=== PATIENT | male | born 1985 | race Caucasian/White ===

== ENCOUNTER 2020-08-18 04:49 | Emergency (ER) | payer OTHER, SELFPAY ==
--- NOTE | ~2020-08-18 | XR_ITS ---
XR abdomen/kub 1V 08/18/2020 06:12 Indication: Right flank pain Procedure: KUB Comparison: CT dated 08/18/2016 Findings: Punctate right UVJ stone noted in the pelvis. Bowel gas pattern nonobstructive. Moderate co lonic fecal loading. No acute osseous abnormality. Impression: 1: Punctate right UVJ stone. Reviewed, dictated and finalized at location B. Impression: 1: Punctate right UVJ stone.
--- NOTE | ~2020-08-18 | CT_ITS ---
EXAMINATION: CT abdomen pelvis wo con DATE: 08/18/2020 05:30 INDICATION: Right flank pain TECHNIQUE: Computed tomography (CT) of the abdomen and pelvis was performed without intravenous contr ast. The dose-length product was 1428.88 mGy-cm. Automated exposure control and iterative reconstruct ion technique were employed. COMPARISON: None. FINDINGS: Lung bases are unremarkable. No significant pleural or pericardial effusion. The liver, spleen, pancreas, adrenal glands and kidneys are unremarkable. There is a 2 mm right UVJ s tone with mild hydronephrosis. Nonobstructive bowel gas pattern. Colonic diverticulosis without evide nce for diverticulitis. No lymphadenopathy. Gallbladder is contracted. No free air or free fluid. No acute osseous abnormality. IMPRESSION: 1. 2 mm right UVJ stone with mild hydronephrosis. Reviewed, dictated and finalized at location B.
[2020-08-18 04:52] VITALS: BP 127/87; PULSE 86; RESP 18; TEMP 35.9; O2SAT 100
--- NOTE | 2020-08-18 04:52 | ED.MALEGU ---
HPI - Male Genitourinary General Chief complaint: Urogenital-Male Stated complaint: right side pain Time Seen by Provider: 08/18/20 04:51 Source: patient Mode of arrival: ambulatory Limitations: no limitations History of Present Illness HPI Narrative: Patient is a 35-year-old male who presents for evaluation of right flank pain. Patient states that pain awakened him from sleep approximately 2 hours ago, described as sharp, colicky in nature with radiation into his right lower flank. Patient denies any testicular pain. He reports some hesitancy with urination. He denies any dysuria or hematuria. He has no known history of kidney stones. He denies fever, chills, nausea or vomiting. Patient denies any left-sided abdominal pain or chest pain. No cough or shortness of breath. Related Data Allergies Allergy/AdvReac Type Severity Reaction Status Date / Time No Known Allergies Allergy Verified 08/18/20 04:57 Review of Systems Review of Systems: Narrative: CONSTITUTIONAL: Denies fever, chills, or sweats. CARDIOVASCULAR: Denies chest pain, palpitations, or edema. RESPIRATORY: Denies cough or dyspnea. GASTROINTESTINAL: Reports right flank pain with radiation into the right abdomen GENITOURINARY: Denies dysuria or hematuria. SKIN: Denies rash or itching. MUSCULOSKELETAL: Denies back pain, joint pain, or myalgia. NEUROLOGIC: Denies headache, numbness, or weakness. [facility] Past Medical History Medical History (Updated 08/18/20 @ 06:05 by Erika Castillo MD) No pertinent past medical history Social History Social History (Updated 08/18/20 @ 05:19 by Erika Castillo MD) Smoking status: Never smoker Substance use: never Gender identity (if verbalized by the patient): Male Exam Narrative: Exam Narrative: GENERAL: Awake, alert, conversant HEAD: Normocephalic, atraumatic. EYES: PERRLA and EOMI. ENT: Nares clear, no rhinorrhea or epistaxis. Mucous membranes moist. NECK: Supple. CHEST: No respiratory distress, breathing even and non labored HEART: Regular rate, sinus rhythm ABDOMEN:Non distended, non tender EXTREMITIES: Normal range of motion. No edema. SKIN: Warm, dry, no rash. NEURO:No focal deficits. Alert and oriented x3. Ambulatory with a narrow based, steady gait. Course Vital Signs Vital signs: Vital Signs Temperature 35.9 C L 08/18/20 04:52 Pulse Rate 86 08/18/20 04:52 Respiratory Rate 18 08/18/20 04:52 Blood Pressure 127/87 08/18/20 04:52 Pulse Oximetry 100 08/18/20 04:52 Temperature 35.9 C L 08/18/20 04:52 Pulse Rate 86 08/18/20 04:52 Respiratory Rate 18 08/18/20 04:52 Blood Pressure 127/87 08/18/20 04:52 Pulse Oximetry 100 08/18/20 04:52 MDM - Male Genitourinary MDM Narrative Medical decision making narrative: Patient presented for evaluation of right flank pain with radiation into the right lower abdomen. At the time of assessment, ABCs are intact and vital signs are stable. Pain is not truly reproducible on exam. Laboratory results notable for leukocytosis, likely secondary to leukemoid reaction, stress reaction from pain. He is afebrile, no urinary tract infection. No acute kidney injury. CT scan confirms 2 mm right UVJ stone with mild hydroureteronephrosis. Obtained KUB per renal stone protocol. Patient pain controlled and will be able to be discharged home with strainer as well as primary care physician and urology follow-up. Patient advised to return should he develop fever, intractable nausea, vomiting or worsening pain. Differential Diagnosis Differential diagnosis: Likely urinary tract infection, acute retention of urine and other (nephrolithiasis) Lab Data Attestation: I reviewed the patient's lab results. Result diagrams: 08/18/20 05:15 08/18/20 05:15 Labs: Lab Results 08/18/20 08/18/20 08/18/20 Range/Units 05:15 05:15 05:15 WBC 20.7 H (4.5-10.0) K/mm3 RBC 5.17 (4.6-6.20) M/mm3 Hgb 15.5 (14.0-18.0
[2020-08-18 05:23] LABS: Basophils Absolute Auto 0.1 K/mm3 (0.0-0.1); Basophils Percent Auto 0.3 % (0.2-1.2); Eosinophils Absolute Auto 0.1 K/mm3 (0-0.3); Eosinophils Percent Auto 0.4 % (0-4.4); Hematocrit 46.2 % (42.0-52.0); Hemoglobin 15.5 g/dL (14.0-18.0); Immature Granulocyte Absolute 0.12 K/mm3 (0.00-0.031); Immature Granulocyte Percent A 0.6 % (0-0.5); Lymphocytes Absolute Auto 3.15 K/mm3 (0.9-3.2); Lymphocytes Percent Auto 15.2 % (18.3-44.2); Mean Corpuscular HGB Conc 33.5 g/dl (32-36); Mean Corpuscular Volume 89.4 fl (80-100); Mean Platelet Volume 9.8 fl (7.4-10.4); Monocytes Absolute Auto 0.8 K/mm3 (0.1-0.6); Monocytes Percent Auto 3.7 % (2.6-8.5); Neutrophils Absolute Auto 16.5 K/mm3 (1.3-6.7); Neutrophils Percent Auto 79.8 % (45.5-73.1); Platelet Count Result 363 k/mm3 (150-375); Red Blood Count 5.17 M/mm3 (4.6-6.20); Red Cell Distribution Width 12.8 % (11.5-14.5); White Blood Count 20.7 K/mm3 (4.5-10.0)
[2020-08-18 05:29] LABS: Add Urine Microscopic? YES; Appearance Urine Clear (Clear); Bacteria Urine Trace /hpf; Bilirubin Urine Negative (Negative); Blood Urine 3+ (Negative); Color Urine Yellow (Yellow); Glucose Urine UA 1+ mg/dL (Negative); Ketones Urine Negative (Negative); Leukocyte Esterase Ur Negative LEU/UL (Negative); Mucus Urine Heavy /lpf; Nitrate Urine Negative (Negative); Protein Urine Negative (Negative); Urobilinogen Urine Negative mg/dL (<2.0)
--- NOTE | 2020-08-18 05:29 | PC.NURSE ---
Patient in CT at this time.
[2020-08-18] MEDS: SODIUM CHLORIDE 0.9% IV 1,000 ML 999 ML IV CONT (05:32)
[2020-08-18] MEDS: ACETAMINOPHEN 500 MG TABLET 1000 MG PO (05:32)
[2020-08-18 05:34] LABS: Specific Grav Ur 1.034 (1.001-1.035)
--- NOTE | 2020-08-18 05:36 | PC.NURSE ---
Patient declined morphine at this time. Med returned to [facility].
[2020-08-18 05:39] LABS: Anion Gap 11 mmol/L (8-16); Blood Urea Nitrogen 16 mg/dL (9-20); Calcium 9.8 mg/dL (8.4-10.2); Carbon Dioxide 25 mmol/L (22-30); Chloride 102 mmol/L (98-107); Estimated CRCL calculation 152 ml/min; Estimated Glomerular Filt Rate > 60; Glucose 176 mg/dL (75-110); Potassium 4.1 mmol/L (3.4-5.0); Sodium 138 mmol/L (137-145)
--- NOTE | 2020-08-18 06:05 | PC.NURSE ---
Patient being taken to Xray.
[2020-08-18 06:50] VITALS: BP 137/73; PULSE 86; RESP 18; O2SAT 99
== END 2020-08-18 06:56 | disposition home or self-care (01) ==
PROVIDERS: Emergency Provider Emergency Medicine; PCP Family Medicine Adolescent Medicine
DX: N13.2 Hydronephrosis with renal and ureteral calculous obstruction (principal)
CPT/HCPCS: 36415; 74018; 74176; 80048; 81001; 85025; 96360; 99284; A9270; J7030